=== PATIENT | male | born 1985 | race Two or more races ===

== ENCOUNTER 2019-11-17 20:27 | Emergency (ER) | payer OTHER ==
[~2019-11-17] VITALS: Ht 167.6 cm; Wt 84.4 kg
[2019-11-17 20:51] VITALS: BP 125/51
[2019-11-17] MEDS ORDERED: ACETAMINOPHEN 500 MG TABLET PO ONE (22:30)
[2019-11-17] MEDS ORDERED: ACETAMINOPHEN 500 MG TABLET ONE (22:40)
[2019-11-17 22:54] LABS: RAPID INFLUENZA A Negative (Negative); RAPID INFLUENZA B Negative (Negative)
[2019-11-17] MEDS ORDERED: LIDOCAINE-MPF 1%, 5ML ONE ×2 (23:22→23:44)
[2019-11-17] MEDS ORDERED: HYDROcodone/APAP 5/325 TABLET ONE (23:23)
[2019-11-17] MEDS ORDERED: HYDROcodone/APAP 5/325 TABLET PO ONE (23:30)
== END 2019-11-18 00:14 | disposition home or self-care (01) ==
LOC: ED 22:00
DX: S60.012A Contusion of left thumb without damage to nail, initial encounter (principal); J00 Acute nasopharyngitis [common cold]; W22.8XXA Striking against or struck by other objects, initial encounter; Y93.89 Activity, other specified; Y92.89 Other specified places as the place of occurrence of the external cause; Y99.8 Other external cause status
CPT/HCPCS: 64450; 71046; 87400; 99284